=== PATIENT | male | born 1970 | race Caucasian/White ===

== ENCOUNTER 2016-11-26 21:52 | Inpatient (IN) | payer OTHER ==
--- NOTE | ~2016-11-26 | PRECARD ---
H&P [facility] [address] [place]. [address] NAME: FATMATA SILVER : 70 STATUS : ADM IN [facility]#: [id number] AGE: 46 ADM/REG DATE : 11/26/16 MR#: [id number] REPORT SERV DATE: 11/27/16 DICTATED BY: SAM GORDON DATE: 11/27/16 REPORT STATUS : Draft TRANSCRIBED BY: DEVAN DATE: 11/27/16 DATE OF ADMISSION: 11/26/2016 HISTORY OF PRESENT ILLNESS: Mr. Fatmata Silver is a 46-year-old gentleman, admitted with chest pain. Mr. Silver has known coronary artery disease, he had multiple drug-eluting stents placed, most recently in 06/2016. He presents with a 1-month history of chest pain. This discomfort he states is almost always brought on by meals, lying flat. He has rare episodes of exertional pain. Discomfort lasts perhaps four to five minutes at a time. Again, he emphasized that the discomfort usually occurs after meals, and usually after lying down. He has no orthopnea, PND. No palpitations. No stroke or stroke-like symptoms. PAST MEDICAL HISTORY: Hypertension, hyperlipidemia, coronary artery disease, diabetes. MEDICATIONS: Albuterol, Xanax, aspirin, Lipitor, Dulcolax, carvedilol, vitamin C, Plavix, coenzyme Q10, Benadryl, Jardiance, Lexapro, Trilipix, Neurontin, hydrocodone, Atarax, Prevacid, Victoza, lisinopril, Glucophage, nitroglycerin, Olopatadine eyedrops, prednisone, Zantac, vitamin E. REVIEW OF SYSTEMS: Complete review of systems obtained, pertinent negative and unremarkable except as noted above. All systems addressed. PHYSICAL EXAMINATION: VITAL SIGNS: Blood pressure about 110/60, heart rate 60. GENERAL: Comfortable, in no acute distress. HEENT: No xanthelasma; lips without cyanosis. LUNGS: Clear to auscultation, no wheezes, rales or rhonchi; good breath sounds. COR: No JVD or hepatojugular reflux, no murmurs, rubs or gallops, impulse mid clavicular line without carotid or abdominal bruits; normal S1 and S2. ABDOMEN: Bowel sounds positive, normal activity, without tenderness, masses or hepatosplenomegaly. EXTREMITIES: No edema, cyanosis. SKIN: Normal turgor. MS: Normal muscle strength, without kyphosis/scoliosis. NEURO/PSYCH: Alert and oriented times 4, no apparent anxiety or depression. LABS: White count 5.0, hematocrit 40.7, platelet count is 181,000. BUN is 30, creatinine 0.09. Troponin 0.3. EKG is sinus rhythm with possible inferior infarct without ischemia. ASSESSMENT: Mr. Silver is a 46-year-old gentleman with known coronary artery disease with H&P PRE [address] [address] NAME: FATMATA SILVER : 70 STATUS : ADM IN [facility]#: [id number] AGE: 46 ADM/REG DATE : 11/26/16 MR#: [id number] REPORT SERV DATE: 11/27/16 DICTATED BY: SAM GORDON DATE: 11/27/16 REPORT STATUS : Draft TRANSCRIBED BY: DEVAN DATE: 11/27/16 somewhat atypical chest pain. Troponin 0.3. We will plan to proceed with cardiac catheterization and possible angioplasty. I discussed the risks, benefits, and alternatives with Mr. Silver of catheterization and stent placement. He understands and requests to proceed. SUSAN/DEVAN Sam Gordon M.D. / [id number] CC: Lester Garsia
[2016-11-26 20:10] LABS: BASOPHILS 0.4 %; BASOPHILS ABSOLUTE 0.02 10/3/uL (0.0-0.16); EOSINOPHILS 3.2 %; EOSINOPHILS ABSOLUTE 0.15 10/3/uL (0.0-0.53); ER CBC TAT 0 Hrs 09 Mins; HEMOGLOBIN 14.2 g/dL (13.6-17.8); IMMATURE GRANULOCYTES 0.2 %; IMMATURE GRANULOCYTES ABSOLUTE 0.01 10/3/uL (0.0-0.11); LYMPHOCYTES 42.2 %; LYMPHOCYTES ABSOLUTE 1.99 10/3/uL (0.67-4.30); MEAN CORPUS HGB CONC 34.6 g/dL (32.0-36.0); MEAN CORPUSCULAR HEMOGLOB 28.5 pg (26.0-34.0); MEAN PLATELET VOLUME 9.8 fL (9.2-13.0); MONOCYTES 9.3 %; MONOCYTES ABSOLUTE 0.44 10/3/uL (0.21-1.20); NEUTROPHILS 44.7 %; NEUTROPHILS ABSOLUTE 2.11 10/3/uL (2.02-8.40); PLATELET COUNT 196 10/3/uL (150-400); RBC DISTRIBUTION WIDTH 12.7 % (12.0-16.0); RED CELL COUNT 4.99 10/6/uL (4.7-6.1); WHITE BLOOD CELLS 4.7 10/3/uL (4.5-10.5)
[2016-11-26 20:11] LABS: MEAN CORPUSCULAR VOLUME 82.2 fL (80-100)
[2016-11-26 20:12] LABS: MANUAL DIFF NO %
[2016-11-26 20:20] LABS: PARTIAL THROMBO TIME 26.9 SEC (22.5-37.2); PROTIME (NOT ORD) 13.4 SEC (12.0-14.5)
[2016-11-26 20:27] LABS: BUN (BLOOD UREA NITROGEN) 35 MG/DL (6-23); CALCIUM, SERUM 8.4 MG/DL (8.5-10.4); CHLORIDE, SERUM 104 MMOL/L (96-112); CO2 (CARBON DIOXIDE) 26 MMOL/L (24-34); CREATININE 1.51 MG/DL (0.70-1.30); GFR AFRICAN AMERICAN 63 ML/MIN (>=60); GFR NON AFRICAN AMERICAN 55 ML/MIN (>=60); GLUCOSE, SERUM 215 MG/DL (60-99); POTASSIUM, SERUM 4.1 MMOL/L (3.5-5.3); SODIUM, SERUM 137 MMOL/L (135-148)
[2016-11-26 20:28] LABS: CHEST PAIN PROFILE TAT 0 Hrs 27 Mins; TROPONIN I 0.31 NG/ML (<0.05)
[~2016-11-26 21:52] MED LIST: ASA5GR PO; ASAB PO; AT25 PO; BEN25 PO; BENADRYL 50 MG50 MG PO; CO Q-10200 MG PO; COREG12 PO; DEPO-TESTOS200 MG/M1 IM; FLEX PO; FLONASE NAS; GLUCOPHAGE1000 MG PO; GLUCOPHXR7 PO; JARDI10T PO; LEXAPRO10 PO; LEXAPRO20; LEXAPRO20 PO; LIPITOR40 PO; LOP25 PO; LOP50 PO; LORTAB10 PO; NEUR600 PO; NITROQUICK0.4 MG SL; NORCO1 TAB PO; NORV5 PO; PATANOL OPH; PCET PO; PERCOCET1 TA4 PO; PLAVIX PO; PRIN10 PO; PRIN5 PO; PROAIR HFA INH; TAGAMET PO; TRILIPIX135 MG PO; VICTOZA18 MG/3 ML SC; VITAMIN D1000 UNI1 PO; VITE PO; X5 PO; XANAX1 MG PO; ZANTAC 150 PO
[2016-11-26] MEDS ORDERED: PREV30 PO (21:53)
[2016-11-26] MEDS ORDERED: ZANTAC150 MG PO (21:53)
[2016-11-26] MEDS ORDERED: NORCO1 TAB PO (21:53)
[2016-11-26] MEDS ORDERED: X5 PO (21:53)
[2016-11-26] MEDS ORDERED: PROAIR HFA INH (21:54)
[2016-11-26] MEDS ORDERED: P20 PO (21:54)
[2016-11-26] MEDS ORDERED: BEN25 PO (21:54)
[2016-11-26] MEDS ORDERED: PATANOL OPH (21:55)
[2016-11-26] MEDS ORDERED: VICTOZA18 MG/3 ML SC (21:55)
[2016-11-26] MEDS ORDERED: BIST PO (21:56)
[2016-11-26] MEDS ORDERED: NITROSTAT0.4 MG SL (21:56)
[2016-11-27 06:28] LABS: INTERNATIONAL NORMAL RATI 1.1 UNITS (-); PARTIAL THROMBO TIME 36.1 SEC (22.5-37.2); PROTIME (NOT ORD) 14.5 SEC (12.0-14.5)
[2016-11-27 06:29] LABS: BASOPHILS 0.6 %; BASOPHILS ABSOLUTE 0.03 10/3/uL (0.0-0.16); EOSINOPHILS 4.8 %; EOSINOPHILS ABSOLUTE 0.24 10/3/uL (0.0-0.53); HEMATOCRIT 40.7 % (40.0-51.0); HEMOGLOBIN 13.8 g/dL (13.6-17.8); IMMATURE GRANULOCYTES 0.2 %; IMMATURE GRANULOCYTES ABSOLUTE 0.01 10/3/uL (0.0-0.11); LYMPHOCYTES 46.3 %; LYMPHOCYTES ABSOLUTE 2.32 10/3/uL (0.67-4.30); MEAN CORPUS HGB CONC 33.9 g/dL (32.0-36.0); MEAN CORPUSCULAR VOLUME 82.7 fL (80-100); MEAN PLATELET VOLUME 9.7 fL (9.2-13.0); MONOCYTES 11.2 %; MONOCYTES ABSOLUTE 0.56 10/3/uL (0.21-1.20); NEUTROPHILS 36.9 %; NEUTROPHILS ABSOLUTE 1.85 10/3/uL (2.02-8.40); PLATELET COUNT 181 10/3/uL (150-400); RBC DISTRIBUTION WIDTH 12.8 % (12.0-16.0); RED CELL COUNT 4.92 10/6/uL (4.7-6.1)
[2016-11-27 06:35] LABS: MANUAL DIFF NO %
[2016-11-27 06:53] LABS: CALCIUM, SERUM 8.6 MG/DL (8.5-10.4); CHLORIDE, SERUM 104 MMOL/L (96-112); CO2 (CARBON DIOXIDE) 23 MMOL/L (24-34); CREATININE 1.09 MG/DL (0.70-1.30); GFR AFRICAN AMERICAN 94 ML/MIN (>=60); GFR NON AFRICAN AMERICAN 81 ML/MIN (>=60); POTASSIUM, SERUM 4.4 MMOL/L (3.5-5.3); SGPT(ALT) 69 U/L (5-65); SODIUM, SERUM 139 MMOL/L (135-148); TRIGLYCERIDE 390 MG/DL (< 150)
[2016-11-27 06:54] LABS: BUN (BLOOD UREA NITROGEN) 30 MG/DL (6-23); CHOL/HDL RATIO(NOT ORDER) 6.2 (0-5); CHOLESTEROL 197 MG/DL (< 200); GLUCOSE, SERUM 128 MG/DL (60-99); HDL CHOLESTEROL 32 MG/DL (> 39); LDL CHOLESTEROL 87 MG/DL (< 130); NON-HDL CHOLESTEROL 165 MG/DL (< 160); TROPONIN I 0.33 NG/ML (<0.05)
[2016-11-27 08:51] LABS: BASOPHILS 0.6 %; BASOPHILS ABSOLUTE 0.03 10/3/uL (0.0-0.16); EOSINOPHILS 4.7 %; EOSINOPHILS ABSOLUTE 0.22 10/3/uL (0.0-0.53); HEMOGLOBIN 14.2 g/dL (13.6-17.8); IMMATURE GRANULOCYTES 0.2 %; IMMATURE GRANULOCYTES ABSOLUTE 0.01 10/3/uL (0.0-0.11); LYMPHOCYTES 45.3 %; LYMPHOCYTES ABSOLUTE 2.14 10/3/uL (0.67-4.30); MEAN CORPUS HGB CONC 33.8 g/dL (32.0-36.0); MEAN CORPUSCULAR VOLUME 82.8 fL (80-100); MEAN PLATELET VOLUME 9.9 fL (9.2-13.0); MONOCYTES 12.1 %; MONOCYTES ABSOLUTE 0.57 10/3/uL (0.21-1.20); NEUTROPHILS 37.1 %; NEUTROPHILS ABSOLUTE 1.75 10/3/uL (2.02-8.40); PLATELET COUNT 190 10/3/uL (150-400); RBC DISTRIBUTION WIDTH 12.9 % (12.0-16.0); RED CELL COUNT 5.07 10/6/uL (4.7-6.1); WHITE BLOOD CELLS 4.7 10/3/uL (4.5-10.5)
[2016-11-27 08:52] LABS: MANUAL DIFF NO %
[2016-11-27 08:58] LABS: INTERNATIONAL NORMAL RATI 1.2 UNITS (-); PROTIME (NOT ORD) 14.7 SEC (12.0-14.5)
[2016-11-27 09:08] LABS: BUN (BLOOD UREA NITROGEN) 30 MG/DL (6-23); CALCIUM, SERUM 8.6 MG/DL (8.5-10.4); CHLORIDE, SERUM 104 MMOL/L (96-112); CHOL/HDL RATIO(NOT ORDER) 5.7 (0-5); CHOLESTEROL 195 MG/DL (< 200); CO2 (CARBON DIOXIDE) 27 MMOL/L (24-34); CREATININE 1.07 MG/DL (0.70-1.30); GFR AFRICAN AMERICAN 96 ML/MIN (>=60); GFR NON AFRICAN AMERICAN 83 ML/MIN (>=60); GLUCOSE, SERUM 135 MG/DL (60-99); HDL CHOLESTEROL 34 MG/DL (> 39); LDL CHOLESTEROL 100 MG/DL (< 130); NON-HDL CHOLESTEROL 161 MG/DL (< 160); POTASSIUM, SERUM 4.5 MMOL/L (3.5-5.3); SODIUM, SERUM 138 MMOL/L (135-148); TRIGLYCERIDE 306 MG/DL (< 150)
[2016-11-27] MEDS ORDERED: BRILINTA90 MG PO (15:46)
== END 2016-11-27 17:20 | disposition home or self-care (01) | DRG 247 ==
LOC: ER 21:52 → 6NO 22:09 → SSU1 11-27 11:46
PROVIDERS: Emergency Medicine; Internal Medicine Cardiovascular Disease
PROC: 027034Z Dilation of Coronary Artery, One Artery with Drug-eluting Intraluminal Device, Percutaneous Approach (ICD-10-PCS; principal; 2016-11-27)
PROC: 4A023N7 Measurement of Cardiac Sampling and Pressure, Left Heart, Percutaneous Approach (ICD-10-PCS; 2016-11-27)
PROC: B2151ZZ Fluoroscopy of Left Heart using Low Osmolar Contrast (ICD-10-PCS; 2016-11-27)
PROC: B2111ZZ Fluoroscopy of Multiple Coronary Arteries using Low Osmolar Contrast (ICD-10-PCS; 2016-11-27)
DX: I21.4 Non-ST elevation (NSTEMI) myocardial infarction (principal); I10 Essential (primary) hypertension; I25.10 Atherosclerotic heart disease of native coronary artery without angina pectoris; E78.5 Hyperlipidemia, unspecified; E11.9 Type 2 diabetes mellitus without complications; E66.9 Obesity, unspecified; E78.00 Pure hypercholesterolemia, unspecified; J44.9 Chronic obstructive pulmonary disease, unspecified; Z95.5 Presence of coronary angioplasty implant and graft; Z88.8 Allergy status to other drugs, medicaments and biological substances
CPT/HCPCS: 71020; 80048; 80061; 82962; 83735; 84460; 84484; 85025; 85347; 85610; 85730; 93005; 93458; 99152; 99153; 99291; A9270-GY; C1725; C1769; C1874; C1887; C1894; C8929; C9600; J2250; J3010; Q9957; Q9967